=== PATIENT | male | born 1985 | race Hispanic/Latino ===

== ENCOUNTER 2023-02-06 18:16 | Emergency (ER) | payer SELFPAY ==
[~2023-02-06] VITALS: Ht 160 cm; Wt 68.0 kg
[2023-02-06] VITALS (10 sets, daily range): BP systolic 106–131; BP diastolic 63–83
[2023-02-06 19:37] LABS: URINE BILIRUBIN - DIPSTICK Negative (NEGATIVE); URINE BLOOD DIPSTICK Negative (NEGATIVE); URINE GLUCOSE - DIPSTICK Negative (NEGATIVE); URINE KETONE Negative (NEGATIVE); URINE LEUK ESTERASE Negative (NEGATIVE); URINE NITRITE - DIPSTICK Negative (Negative); URINE PROTEIN - DIPSTICK Negative (NEG-TRACE); URINE SPECIFIC GRAVITY 1.025; URINE UROBILINOGEN - DIPSTICK 0.2 E.U./dL (0.2)
[2023-02-06 19:41] LABS: URINE COLOR Yellow
[2023-02-06 20:06] LABS: BASO% 0.8 % (0-3); EOS% 1.6 % (0-8); HEMATOCRIT 45.1 % (39.0-50.0); HEMOGLOBIN 14.8 g/dl (14.0-18.0); IMMATURE GRANULOCYTES 0.2 % (0.0-5.0); LYMPH% 26.5 % (15-41); MEAN CELL VOLUME 89.3 fL CALC (80.0-100.0); MEAN CORPUSCULAR HGB 29.3 pG CALC (26.0-32.0); MEAN CORPUSCULAR HGB CONC 32.8 g/dL CAL (32.0-36.0); MONO% 6.8 % (2-13); NEUT# 6.32 thou/uL (1.82-7.42); NEUT% 64.1 % (42-76); RED BLOOD COUNT 5.05 mill/uL (4.70-6.10); RED CELL DISTRI WIDTH 12.2 % (11.5-15.5)
[2023-02-06 20:24] LABS: ALBUMIN 4.4 g/dL (3.2-5.0); ALKALINE PHOSPHATASE 82 u/l (38-126); ANION GAP 11 (6-22 (CALC)); BILIRUBIN, TOTAL 0.8 mg/dL (0.2-1.3); BUN 16 mg/dL (9-20); BUN/CREATININE RATIO 17 (12-20 (CALC)); CARBON DIOXIDE 25 mmol/l (22-30); CHLORIDE 107 mmol/l (95-108); CPK 253 u/l (55-170); CREATININE 0.9 mg/dL (0.7-1.3); GFR FOR AFR.AMER. > 60 ML/MIN (>=60 (CALC)); GFR OTHER RACES > 60 ML/MIN (>=60 (CALC)); LIPASE 36 u/l (23-300); MAGNESIUM 2.1 mg/dL (1.6-2.3); POTASSIUM 3.8 mmol/l (3.5-5.1); SGOT/AST 37 u/l (17-59); SODIUM 138 mmol/l (137-146); TOTAL PROTEIN 7.5 g/dL (6.3-8.2)
[2023-02-06 20:55] LABS: TSH, 3RD GENERATION 3.22 uIU/mL (0.47 - 4.68)
[2023-02-06] MEDS ORDERED: MOTRIN800 MG PO (21:27)
== END 2023-02-06 21:40 | disposition home or self-care (01) | DRG 195 ==
LOC: ED 18:16
PROVIDERS: Family Medicine; Internal Medicine
DX: J10.1 Influenza due to other identified influenza virus with other respiratory manifestations (principal)